=== PATIENT | male | born 1955 | race Caucasian/White ===

== ENCOUNTER 2022-10-27 10:23 | Observation (INO) ==
--- NOTE | 2022-09-21 14:26 | PAT Medication Instructions ---
Medication Instructions Date of Service September 21, 2022 Home Medications 5-Loxin 1 tab PO QAM Ca 600 mg-D3 20 mcg-mag oxide 50 gz-Wb-yohlcr-manganese-boron tablet (Calcium 600-D3 Plus (mag-zinc)) 1 tab PO QAM Reyez Fruit Extract 1 tab PO QAM Tumeric Tab 1 tab PO QAM ascorbic acid (vitamin C) 100 mg tablet (Vitamin C) 100 mg PO QAM cholecalciferol (vitamin D3) 25 mcg (1,000 unit) tablet (Vitamin D3) 25 mcg PO QAM indomethacin 50 mg capsule 50 mg PO QAM multivitamin 1 tab PO QAM ASK your surgeon for instructions indomethacin 50 mg capsule 50 mg PO QAM STOP taking 2 weeks before surgery 5-Loxin 1 tab PO QAM Ca 600 mg-D3 20 mcg-mag oxide 50 bv-Ni-qugfhf-manganese-boron tablet (Calcium 600-D3 Plus (mag-zinc)) 1 tab PO QAM Reyez Fruit Extract 1 tab PO QAM Tumeric Tab 1 tab PO QAM DO NOT take the morning of surgery ascorbic acid (vitamin C) 100 mg tablet (Vitamin C) 100 mg PO QAM cholecalciferol (vitamin D3) 25 mcg (1,000 unit) tablet (Vitamin D3) 25 mcg PO QAM multivitamin 1 tab PO QAM Other Notes NOTHING TO EAT OR DRINK AFTER MIDNIGHT. If you have any questions please call us at [phone] or [phone] or [phone] or [phone]
--- NOTE | 2022-09-27 13:35 | Anesthesiology Consultation ---
Date of Service September 27, 2022 Assessment & Plan (1) Encounter for pre-operative examination: Chart Review Chart Review: Acceptable Risk for Surgery (pending response from PCP re: elevated BP ) and Patient seen in Pre Admission Testing - Will send note to PCP re: elevated blood pressure at [facility] appt- need response - Due to BMI - patient is NOT a Same Day Joint candidate - Pt states cousin had "anesthesia issue" possibly with succinylcholine. Patient does not have specifics. Pt encouraged to reach out to cousin to find out more information and to call PAT if able to get more information. Pt states he has never personally had issues with anesthesia. No immediate family members (siblings or parents) have anesthesia issues. Discussed with Dr. Connelly- patient can proceed as scheduled. Per PAT appt on 09/27/22, patient recent returned from [facility] 09/10/22. Pt is vaccinated for Covid. Will leave to surgeon's discretion if preop Covid testing needed. Educated on importance of using Covid precautions one week prior to surgery Teaching & Discussion Pre-Anesthesia Teaching/Discussion Notes: Instructed NPO after midnight before surgery,except medications with 15 cc of water. Medication instructions provided according to the [facility] guidelines. History Surgery Operation Date: 10/26/22 07:00 Proposed Procedures p Right Total Knee Arthroplasty - Kenny Miller MD Height/Weight Height: 5 ft 10 in Weight: 163.9 kg Allergies Allergy/AdvReac Type Severity Reaction Status Date / Time No Known Allergies Allergy Verified 09/17/22 07:48 Medications Home Medications Medication Instructions Recorded Confirmed Last Taken 5-Loxin 1 tab PO QAM 09/17/22 09/17/22 Unknown Ca 600 mg-D3 20 mcg-mag oxide 50 1 tab PO QAM 09/17/22 09/17/22 Unknown rq-Hn-ollhjl-manganese-boron tablet (Calcium 600-D3 Plus (mag-zinc)) Reyez Fruit Extract 1 tab PO QAM 09/17/22 09/17/22 Unknown Tumeric Tab 1 tab PO QAM 09/17/22 09/17/22 Unknown ascorbic acid (vitamin C) 100 mg 100 mg PO QAM 09/17/22 09/17/22 Unknown tablet (Vitamin C) cholecalciferol (vitamin D3) 25 25 mcg PO QAM 09/17/22 09/17/22 Unknown mcg (1,000 unit) tablet (Vitamin D3) indomethacin 50 mg capsule 50 mg PO QAM 09/17/22 09/17/22 Unknown multivitamin 1 tab PO QAM 09/17/22 09/17/22 Unknown Past Medical History Medical History Morbid obesity Right knee DJD Exercise / Class Metabolic Activity II 4-5 Yardwork/Stairs/Walk up hill (one flight of stairs - no chest pain or SOB ) Past Family History Family History Other No family history of adverse response to anesthesia Past Surgical History Surgical History History of open reduction and internal fixation (ORIF) procedure leg leg Hx of arthroscopic knee surgery right Hx of cataract extraction B/L Past Anesthesia History No Hx of Anesthesia Complications and No Family Hx of Anesthesia Complications (cousin- possible succinylcholine issue- patient does not have specifics- no issues with anesthesia personally- pt unsure if he has ever had GA ) History of PONV No Hx of PONV and No Hx of Motion Sickness Social History Smoking Status: Never smoker Do You Dip or Chew Tobacco: No Hx Alcohol Use: Yes (SOCIALLY) alcohol intake frequency: a few times a month Hx Substance Use: No substance use type: does not use Review of Systems Chronic occ post nasal drip- occ cough Rare reflux- diet dependent Snoring - no witnessed apnea - no hx of sleep study Patient denies chest pain, shortness of breath, dyspnea on exertion, wheezing, palpitations. No hx of seizures, stroke, GA. No hx of blood clots or blood transfusions Physical Exam Vital Signs VITALS BP 160/100 (manually) P 69 TEMP 98.0 SP02 97% RESP 16 Constitutional no acute distress ENMT Mouth: no TMJ clicking Thyromental Distance: > or= 3.5 Finger Breadths (3.5) Mallampati Class: II Missing molars Permanent implant- top front tooth Right front tooth and bottom front tooth capped Neck + short neck and + thick neck; neck extension not limited Respiratory normal respiratory effort; no respiratory distress Auscultation: lungs clear to auscultation bilaterally; no wheezes Cardiovascular Rate/Rhythm: regular rate and regular rhythm Heart Sounds: no murmur Vessels: no carotid bruit Musculoskeletal Spine: no pain with cervical ROM Extremities: extremities normal to inspection Psychiatric Orientation: alert Lab Results Anesthesia Preop Results Results Anesthesia Widget: WBC 8.30 K/ul (4.8-10.8) 09/27/22 Hgb 15.5 g/dl (14.0-18.0) 09/27/22 Hct 46.5 % (40.1-51.0) 09/27/22 Plt 267 K/uL (130-400) 09/27/22 Na 140 mmol/L (136-145) 09/27/22 K 4.1 mmol/L (3.5-5.1) 09/27/22 Cl 105 mmol/L (98-107) 09/27/22 CO2 28 mmol/L (21-32) 09/27/22 BUN 15 mg/dl (6-23) 09/27/22 Creat 0.73 mg/dl (0.6-1.4) 09/27/22 Glucose Level 85 mg/dl (70-99(Fasting)) 09/27/22 PT 10.8 Seconds (9.0-12.0) 09/27/22 PTT 26.8 Seconds (21.0-31.0) 09/27/22 INR 1.0 (0.9-1.1) 09/27/22 Blood Type A Positive 09/27/22 Antibody Screen NEGATIVE 09/27/22 Testing Electrocardiogram Date: 09/27/22 SR with 1st degree AVB at 62bpm Otherwise normal EKG per cardio. Chest X-Ray Date: 09/27/22 Findings: + NAD COVID-19 Risk Screen Screening Information COVID-19 Screen Date: 09/27/22 Exposure 21 Days Family/Household +COVID Last 21 Days: No Exposure 10 Days Any COVID Exposure Last 10 Days: No Symptoms Last 10 Days Experienced COVID Sx Last 10 Days: No + COVID 0-90 Days COVID + in Last 0-90 Days: No Risk Plan COVID Risk Plan: No Risk Identified Patient Education COVID Preop Screening Education Complete: Yes
--- NOTE | 2022-10-18 16:01 | History and Physical Report ---
DATE OF ADMISSION: 10/26/2022. CHIEF COMPLAINT: Right knee pain and discomfort. HISTORY OF PRESENT ILLNESS: The patient is a 67-year-old gentleman from [place] who presents for surgical treatment of his right knee. He has got a long history of right knee pain and discomfort, describes it gotten worse over time. He has been treated conservatively by his primary care doctor and eventually by Dr. Tha Arndt from [place]. He initially told him that he needed to lose some weight and lose 30 pounds. He came back after he lost some weight and told him he had to lose 15 more. He has been frustrated by this. His pain has gotten worse over time. He describes global pain. The more he is up and on it, the more it hurts. Limps more as the day goes on. He would like to have his right knee fixed. He has been through extensive conservative treatment by his primary care doctor, which has become less successful. PAST MEDICAL HISTORY: Significant for: 1. Gout. 2. Obesity with BMI of 52. PAST SURGICAL HISTORY: Includes right knee scope many years ago. ALLERGIES: None. CURRENT MEDICATIONS: Indomethacin. SOCIAL HISTORY: A 67-year-old male. Lives in [place]. He is . Retired. Rare alcohol intake. Does not smoke. FAMILY HISTORY: No heart disease and diabetes. REVIEW OF SYSTEMS: Significant for obesity. No chest pain or shortness of breath. No history of DVT or PE. No known bleeding problems. PHYSICAL EXAMINATION: GENERAL: Shows a pleasant, large middle-aged male. HEENT: Benign. NECK: Supple. No lymphadenopathy. LUNGS: Clear to auscultation. HEART: Regular rate and rhythm. ABDOMEN: Soft, nontender, nondistended. EXTREMITIES: Grossly neurovascularly intact except as follows. Examination of the right knee reveals the patient walks with a bit of a limp. He has got varus alignment to his knee. He has got bony hypertrophy medially. Range of motion about 5 to 10 degrees short of full extension to 120 degrees of flexion. He can do a straight leg raise. No particular pain with hip motion. X-RAYS: X-rays of the right knee reviewed. It shows advanced right knee degenerative joint disease. He has got complete loss of his medial joint space. He has got osteophytes medially. He has got subchondral sclerosis. He has got cystic changes in the medial femoral condyle. Mild patellofemoral disease. ASSESSMENT: A 67-year-old very large gentleman with advanced right knee degenerative joint disease. He has failed conservative treatment. He has attempted weight loss, but limited success. He has limited his mobility. He would like to have his right knee fixed. PLAN: We talked about treatment options. We are going to proceed with right knee replacement. The risks and benefits of this procedure were explained to the patient and include but not limited to DVT, PE, , infection, neurological injury, vascular injury, bleeding problem, pain, limited range of motion, stiffness, failure to relieve symptoms, etc. The patient understands and desires to proceed. Informed consent was obtained. I did tell him that based on his size and weight that he is at increased risk for infection and loosening and he is aware of that and would like to proceed. Does not feel like he can progress activities with his knee pain as it is. We will be planning on DVT prophylaxis includes thigh-high TEDs, SCDs, and aspirin. Holding the medicine 10 days preop. We will likely put a stem in his tibia in order to decrease the likelihood of loosening. Job ID: [id number] [facility]
[~2022-10-27 10:23] MED LIST: ACETAMINOPHEN 500 MG TAB PO SCH; BUPIVACAINE 0.5 % 5 MG/1 ML PF 10ML VIAL ONE; BUPIVACAINE LIPOSOME/PF 266 MG, BUPIVACAINE/EPINEPHRINE 50 ML, SODIUM CHLORIDE 0.9% 30 ... INFIL SCH; CeleBREX 200 MG CAP PO SCH; FAMOTIDINE 20 MG TAB PO SCH; LR 500ML BOLUS, THEN 15ML/HR IV SCH; LR 60ML/HR IV SCH; METOCLOPRAMIDE HCL 10 MG TABLET PO SCH; ROPIVACAINE 0.5% 5 MG/ML 30 ML VIAL ONE; Scopolamine 1 MG TDSY TD SCH; Scopolamine CHECK PATCH PLACEMENT SCH; TRANEXAMIC ACID 1,000 MG **IV Intra-op IV SCH
[2022-10-27] MEDS: LR 500ML BOLUS, THEN 15ML/HR IV SCH (11:04)
[2022-10-27] MEDS: ACETAMINOPHEN 500 MG TAB PO SCH ×2 (11:05→22:26)
[2022-10-27] MEDS: CeleBREX 200 MG CAP PO SCH (11:05)
[2022-10-27] MEDS: FAMOTIDINE 20 MG TAB PO SCH (11:05)
[2022-10-27] MEDS: METOCLOPRAMIDE HCL 10 MG TABLET PO SCH (11:06)
[2022-10-27] MEDS: Scopolamine 1 MG TDSY TD SCH (11:06)
[2022-10-27] MEDS ORDERED: ePHEDrine sulfate 50 MG/ML AMP IV PRN (11:11)
[2022-10-27] MEDS ORDERED: fentaNYL citrate 100 MCG/2 ML VIAL IV PRN (11:11)
[2022-10-27] MEDS ORDERED: ATROPINE SULFATE 0.1 MG/ML 10ML SYR IV PRN (11:11)
[2022-10-27] MEDS ORDERED: ONDANSETRON INJ 2 MG/ML 2 ML VIAL IV PRN ×2 (11:11→18:05)
[2022-10-27] MEDS ORDERED: BUPIVACAINE/EPINEPHRINE 0.25% 1:200,000 30 ML VIAL ONE (12:12)
[2022-10-27] MEDS ORDERED: SODIUM CHLORIDE 0.9% INJ 10 ML VIAL ONE (12:12)
[2022-10-27] MEDS ORDERED: BUPIVACAINE LIPOSOME 1.3% 266 MG/20 ML VIAL ONE (12:13)
[2022-10-27] MEDS ORDERED: PROPOFOL IV EMULSION 10 MG/ML 20 ML VIAL IV ONE (12:30)
[2022-10-27] MEDS ORDERED: LIDOCAINE 2% MPF LOCAL 5 ML VIAL INFIL ONE (12:30)
[2022-10-27] MEDS ORDERED: MIDAZOLAM HCL 1 MG/ML 2ML VIAL ONE ×2 (12:31→14:21)
[2022-10-27] MEDS ORDERED: fentaNYL citrate 100 MCG/2 ML VIAL ONE (12:31)
--- NOTE | 2022-10-27 14:21 | History & Physical Bridge Note ---
Date of Service October 27, 2022 History & Physical Bridge Note I have examined the patient, reviewed the History & Physical and in the interval since the performance of the History & Physical I have noted the following changes of clinical significance: no changes noted
[2022-10-27] MEDS ORDERED: PHENYLEPHRINE 100MCG/ML 5ML SYR ONE (14:49)
[2022-10-27] MEDS ORDERED: ePHEDrine sulfate 50 MG/ML SYR ONE (14:49)
[2022-10-27] MEDS ORDERED: ePHEDrine sulfate 50 MG/ML AMP ONE (15:17)
[2022-10-27] MEDS: BUPIVACAINE LIPOSOME/PF 266 MG, BUPIVACAINE/EPINEPHRINE 50 ML, SODIUM CHLORIDE 0.9% 30 ... INFIL SCH (15:21)
[2022-10-27] MEDS: TRANEXAMIC ACID 1,000 MG **IV Intra-op IV SCH (15:53)
--- NOTE | 2022-10-27 16:47 | Operative Report ---
PG Post Operative Report Pre & Post Diagnosis Operation Date: 10/27/22 12:30 Pre-Op Diagnosis: Right Knee DJD Post-Op Diagnosis: Right Knee DJD I identified the patient and participated in the time-out.: Yes Procedure Operation Date: 10/27/22 12:30 Actual Procedures p Right Total Knee Arthroplasty(Right) - Kenny Miller MD Surgeon Kenny Miller MD Change Management Lead Wang Thayer PA-C Estimated Blood Loss 50 Findings Consistent with Post-Op Diagnosis Operative findings were advanced right knee DJD. Grade 4 [id number]-pq-utje disease in all 3 compartments most severe in the medial side. He had extensive synovi tis throughout his knee joint. Specimens Right knee sent for pathology Drains none Anesthesia Type Spinal MAC Complications none Disposition Accompanied Patient To Recovery: No Indications Patient is a 67-year-old very large gentleman who is a long history of a right knee pain discomfort with describes gotten worse over time. Is been through extensive conservative treatments became less successful. He spent quite a bit of time trying to lose weight and optimize his situation but he continued be markedly limited by his knee pain. He elected proceed with surgical treatment. Description of Procedure Operative implants consist of: 1 Biomet Vanguard size 80 right posterior stabilized femoral component. 2. Biomet size 83 tibial tray with a 19 x 80 mm stem with a 2.5 mm offset and small cruciate wing. 3. 12 mm posterior stabilized polyethylene insert. 4. 34 x 8 and half all Paller patella. The patient was taken the operating room, identified, placed on the operating table supine position protectors were properly padded. IV antibiotics by anesthesia team. Spinal anesthetic and abductor canal block had been provided in the holding area. Nichols catheter was placed in sterile fashion. A right thigh tent was then placed. Right lower extremities and prepped and draped in usual sterile fashion. The right leg was elevated exsanguinated with use of an Esmarch in terms playset 300 mmHg. An anterior approach to the right knee was then performed to longitudinal incision centered over the patella. Sharp dissection was got through subcutaneous tissue down the extensor mechanism. A medial parapatellar arthrotomy incision was made. Some subperiosteal dissection was carried out medially. The fat pad was dissected from Neath patella tendon. The lateral patellofemoral ligament was released. Patella subluxated laterally knee was flexed. The osteophytes taken off distal femur. The ACL and PCL then released from distal femur the tibia subluxated anteriorly. I then excised the tibial eminence. I elected to place a stem tibia due to his very large size. The entry reamer was used into the tibia. I reamed up to a size 19. The reamer was left in place. The intramedullary cutting guide was placed and adjusted to take a millimeter off the most deficient aspect the posterior medial tibial plateau. The tibial cut was made. Tibia sized to a size 83. 2 and half millimeter OsteoSet was selected. The proximal tibia was prepared for a 19 mm stem with a 2.5 mm offset and a small cruciate wing. This implant was assembled and placed and fit nicely. Attention drawn the femur. Distal femur stem with a sharp drill bit intramedullary canal was suction. A right 6 degree valgus cutting guide was placed. This femoral cutting block was pinned in place. Distal femoral cut was made to take an additional 3 mm bone off distal femur. The femur was then sized to a size 80. Sized exactly 2 and 80. The AP cutting block was pinned parallel to the epicondylar axis which was 3 degrees of external rotation. The anterior cut, anterior chamfer, posterior cut, posterior chamfer cuts were made. The box cutting guide was placed in just slight lateral box cut was made. The knee was flexed. The remnants of the medial and lateral menisci were excised. The osteophytes were taken off the posterior aspect the femur. A trial femoral component was placed. The knee was then trialed a 12 mm insert fit most appropriately. Attention drawn the patella. The patella was cleaned of all soft tissues. Patella thickness measured 23 mm in thickness was cut down to 15. Was sized to a size 34 patella. The lug holes were drilled for the 34 patella. Lateral osteophytes removed. Patella button was placed. Knee was taken through range of motion and the patella tracked nicely with no thumbs test. Attention drawn to place the permanent components. Nupathe all trial components were removed. Bone plug was placed in the distal femur limit blood loss. Double batch Palacos G cement was mixed. A Biomet Vanguard size 80 right posterior stabilized femoral component, size 83 tibial tray with a small cruciate wing, 80 x 19 mm offset stem, a 12 mm Po stabilized polyethylene insert, and a 34 x 8 and half all Paller patella then cemented in place. Knee was brought out into full extension until cement hardened. Final cement check was then performed. The pericapsular tissues were injected with total 100 cc of combination of 20 cc of Exparel, 30 cc normal saline, 50 cc of quarter percent Marcaine with epinephrine. The patient did receive 1 g tranexamic acid. The tourniquet let down for final turn time 78 minutes but hemostasis assured use electrocautery. Extensor mechanism closed with combination 1 PDS suture #1 Vicryl suture in [id number] fashion. Extensor mechanism checked found to be intact the subcutaneous tissue then closed with 2 Dexon suture in a buried interrupted fashion skin was closed skin sybil. Leg was then cleaned and dried a sterile dressing was Xeroform, 4 x 4's, sterile cast padding, Cesar bandage applied. Patient then transferred to the recovery room in stable condition. Patient tolerated procedure well and there are no complications. Wang Thayer, my physician payroll and benefits assistant, was present for the entire procedure. His assistance was essential and required for appropriate patient positioning, prepping and draping, surgical exposure, performing the technical details of the operation, placement the implants, closure of the wound, and placement of the sterile bandage. I attest to the content of the Intraoperative Record and any orders documented therein. Any exceptions are noted below.
--- NOTE | 2022-10-27 17:23 | Anesthesiology Progress Note ---
Date of Service October 27, 2022 Anesthesia Post Procedure Vital Signs Vital Signs: Temp Pulse Pulse Resp BP BP Pulse Ox 10/27/22 17:15 36.6 C 56 L 14 136/77 94 10/27/22 17:05 71 14 114/71 95 10/27/22 16:55 62 16 138/70 95 10/27/22 16:47 36.3 C L 75 15 131/73 95 10/27/22 11:21 135/67 10/27/22 10:52 36.9 C 95 H 20 183/106 H 98 O2 Del Method 10/27/22 17:15 Room Air 10/27/22 17:05 Room Air 10/27/22 16:55 Room Air 10/27/22 16:47 Room Air 10/27/22 11:21 10/27/22 10:52 Room Air Pain Intensity Right Knee: Pain Intensity: 2 Transfer of Care Handoff Completed per policy Notes Mental Status: alert / awake / arousable Patient Amnestic to Procedure: Yes Nausea / Vomiting: adequately controlled Pain: adequately controlled Airway Patency, RR, SpO2: stable & adequate BP & HR: stable & adequate Hydration State: stable & adequate Neuraxial Anesthesia: was administered and sensory block is resolving Anesthetic Complications: no major complications apparent and Pt Satisfied with anesthetic care
--- NOTE | 2022-10-27 17:25 | XRay Report ---
TWO VIEWS RIGHT KNEE CLINICAL HISTORY: Postoperative examination. FINDINGS: AP and crosstable lateral portable views of the right knee are obtained. A right knee arthr oplasty is in near anatomic alignment. There has been undersurface remodeling of the patella. No acut e fracture is seen. There are expected postoperative changes around the knee including skin clips, so ft tissue edema, and subcutaneous gas. IMPRESSION: Expected postoperative changes status post right knee arthroplasty. No acute fracture is seen. ACT 112: Negative or not required by law. Electronically signed by: Hi Pastrana M.D. 10/27/2022 5:23 PM
[2022-10-27] MEDS: Scopolamine CHECK PATCH PLACEMENT SCH ×2 (17:28→23:27)
[2022-10-27] MEDS ORDERED: HYDROmorphone INJ 1 MG/ML SYRINGE IV PRN (18:05)
[2022-10-27] MEDS ORDERED: METOCLOPRAMIDE HCL INJ 5 MG/ML 2 ML VIAL IV PRN (18:05)
[2022-10-27] MEDS ORDERED: NALOXONE HCL 0.4 MG/1 ML VIAL/CARP IV PRN (18:05)
[2022-10-27] MEDS ORDERED: MAGNESIUM HYDROXIDE SUSP 30 ML UDC PO PRN (18:05)
[2022-10-27] MEDS ORDERED: ALUMINUM/MAGNESIUM SUSP 30 ML UDC PO PRN (18:05)
[2022-10-27] MEDS ORDERED: bisacodyL 10 MG SUPP PR PRN (18:05)
[2022-10-27] MEDS: SODIUM CHLORIDE 0.9% 1000ML 1,000 ML IV SCH (18:18)
[2022-10-27] MEDS ORDERED: TAMSULOSIN HCL 0.4 MG CAP PO PRN (18:28)
[2022-10-27] MEDS: KETOROLAC TROMETHAMINE 15 MG/ML VIAL IV SCH ×2 (19:43→23:30)
[2022-10-27] MEDS: ASCORBIC ACID 500 MG TAB PO SCH (19:43)
[2022-10-27] MEDS: DOCUSATE SODIUM 100 MG CAP PO SCH (20:20)
[2022-10-27] MEDS: ASPIRIN 81 MG ECTAB PO SCH (20:21)
[2022-10-27] MEDS: TAPENTADOL HCL ER 50 MG TABCR PO SCH (20:23)
[2022-10-27] MEDS ORDERED: SENNA 8.6 MG TAB PO SCH (21:00)
[2022-10-27] MEDS: ceFAZolin 2000MG 2,000 MG/15 ML SYR IV SCH (22:26)
[2022-10-27] MEDS ORDERED: TRANEXAMIC ACID / 0.7% NACL 1,000 MG/100 ML BAG IV SCH (22:45)
[2022-10-27] MEDS: oxyCODONE HCL IR 5 MG TAB (IMMEDIATE RELEASE) PO PRN (23:28)
[2022-10-28] MEDS: SODIUM CHLORIDE 0.9% 1000ML 1,000 ML IV SCH (03:41)
[2022-10-28] MEDS: Scopolamine 1 MG TDSY TD SCH (05:03)
[2022-10-28] MEDS: ACETAMINOPHEN 500 MG TAB PO SCH ×3 (05:03→15:29)
[2022-10-28] MEDS: METOCLOPRAMIDE HCL 10 MG TABLET PO SCH (05:03)
[2022-10-28] MEDS: BUPIVACAINE LIPOSOME/PF 266 MG, BUPIVACAINE/EPINEPHRINE 50 ML, SODIUM CHLORIDE 0.9% 30 ... INFIL SCH (05:03)
[2022-10-28] MEDS: CeleBREX 200 MG CAP PO SCH (05:03)
[2022-10-28] MEDS: LR 500ML BOLUS, THEN 15ML/HR IV SCH (05:03)
[2022-10-28] MEDS: FAMOTIDINE 20 MG TAB PO SCH (05:03)
[2022-10-28] MEDS: TRANEXAMIC ACID 1,000 MG **IV Intra-op IV SCH (05:04)
[2022-10-28] MEDS: KETOROLAC TROMETHAMINE 15 MG/ML VIAL IV SCH ×2 (05:42→12:00)
[2022-10-28] MEDS: ceFAZolin 2000MG 2,000 MG/15 ML SYR IV SCH (05:46)
[2022-10-28 07:50] LABS: Hematocrit (blood only) 37.7 % (40.1-51.0); Hemoglobin 12.6 g/dl (14.0-18.0); Mean Corpuscular Hemoglobin 30.4 pg (25.0-34.0); Mean Corpuscular Hgb Conc 33.4 g/dL (32.0-36.0); Mean Corpuscular Volume 91.1 fL (80.0-100.0); Mean Platelet Volume 9.9 fL (9.4-12.4); Platelet Count 221 K/uL (130-400); RDW Coefficient of Variation 12.8 % (11.5-14.5); RDW Standard Deviation 42.5 fL (36.4-46.3); Red Blood Count 4.14 M/uL (4.63-6.08); White Blood Count 11.63 K/ul (4.8-10.8)
[2022-10-28] MEDS ORDERED: dexAMETHasone 10 MG in SYRINGE 0 ML IV SCH (08:00)
--- NOTE | 2022-10-28 08:04 | Progress Notes ---
DATE OF SERVICE: 10/28/2022 SUBJECTIVE: A 67-year-old gentleman postoperative day 1 from right knee replacement. He is doing ok ay. Had a rough night as far as sleeping. No chest pain or shortness of breath. Not feeling dizzy or lightheaded. OBJECTIVE: VITAL SIGNS: Temperature 36.9. Vital signs are stable. GENERAL: Shows a pleasant middle-aged male. He is sitting up in bed, looks reasonably comfortable. EXTREMITIES: Examination of the right leg reveals the leg to be well aligned. Dressing is clean, dr y, and intact. He can dorsiflexors and plantarflex his foot appropriately. He is neurologically int act. LABORATORY DATA: Labs are pending. ASSESSMENT: A 67-year-old gentleman postoperative day 1 from right knee replacement, doing pretty we ll. The pain has been reasonably well controlled. He is neurologically intact. PLAN: 1. DVT prophylaxis includes thigh-high TEDs, SCDs, and aspirin twice a day. 2. PT/OT, weightbear as tolerated. Right total knee protocol. 3. Pain control. Doing okay with current pain regimen. 4. Disposition: He is planning to be discharged to home with some home health. We will see how the rapy goes today. He is going to probably need another day or so in the hospital based on his large s angelae. Job ID: [id number]
[2022-10-28 08:13] LABS: BUN Creatinine Ratio 24.2 (10-20); Calcium 7.9 mg/dl (8.5-10.1); Creatinine Clr Calc Pharmacy 163.2 ml/min; Est GFR (African American) 115.1 ml/min; Est GFR (Non-African American) 99.3 ml/min; Potassium 4.2 mmol/L (3.5-5.1)
[2022-10-28] MEDS: oxyCODONE HCL IR 5 MG TAB (IMMEDIATE RELEASE) PO PRN (08:28)
[2022-10-28] MEDS: ASCORBIC ACID 500 MG TAB PO SCH (08:29)
[2022-10-28] MEDS: ASPIRIN 81 MG ECTAB PO SCH (08:29)
[2022-10-28] MEDS: DOCUSATE SODIUM 100 MG CAP PO SCH (08:29)
[2022-10-28] MEDS: Scopolamine CHECK PATCH PLACEMENT SCH (08:29)
[2022-10-28] MEDS: TAPENTADOL HCL ER 50 MG TABCR PO SCH (08:35)
[2022-10-28] MEDS ORDERED: CHERRY FRUIT EXTRACT PO SCH (09:00)
[2022-10-28] MEDS ORDERED: [UNRECOGNIZED DRUG - OTHER] PO SCH (09:00)
[2022-10-28] MEDS ORDERED: NON-FORMULARY MEDICATION (Multivitamin Tablet) PO SCH (09:00)
[2022-10-28] MEDS ORDERED: LOSARTAN POTASSIUM 25 MG TAB PO SCH (09:00)
[2022-10-28] MEDS ORDERED: CHOLECALCIFEROL 1,000 UNITS 25 MCG TAB PO SCH (09:00)
[2022-10-28] MEDS ORDERED: TUMERIC PO SCH (09:00)
[2022-10-28] MEDS ORDERED: NON-FORMULARY MEDICATION (Ascorbic Acid (Vitamin C) [Vitamin C] 100 mg Tablet) PO SCH (09:00)
[2022-10-28] MEDS ORDERED: MULTIVITAMIN TAB PO SCH (09:00)
[2022-10-28] MEDS ORDERED: CEROVITE ADV FORMULA TAB PO SCH (09:00)
--- NOTE | 2022-10-31 07:53 | Discharge Summary ---
Date of Service October 31, 2022 Discharge Data Procedures Performed Operation Date: 10/27/22 12:30 Actual Procedures p Right Total Knee Arthroplasty(Right) - Kenny Miller MD Hospital Course (1) Status post total right knee replacement: This is a 67 year old patient admitted on 10/27/22 and underwent total knee arthroplasty. He tolerated the procedure well and there were no complications. Transferred to the PACU post op and later to the orthopedic floor for further care. He was given ancef for antibiotic prophylaxis. He was also given ARIANA stockings, SCDs, and aspirin for DVT prophylaxis. Hemoglobin, hematocrit, and vital signs were monitored during his hospital stay and remained stable. Did not require any blood transfusions. There were no complications during his hospital stay. By post op day #1 the patient was tolerating a regular diet, pain was reasonably controlled with oral pain medicine, and he was participating in physical therapy. On post op day #1 the patient was discharged home and set up with home health care. He was given printed discharge instructions including prescriptions for extra strength tylenol, aspirin, ketorolac, cefadroxil, zofran, senokot, flomax, and oxycodone. Continue physical therapy, weight bearing as tolerated. Continue ARIANA stockings. Follow up approximately 2 weeks post op or sooner if there are problems or concerns. Coding Level of Care Code None Diagnoses Status post total right knee replacement Z96.651
== END 2022-10-28 17:45 | disposition home health service (06) ==
LOC: 3E 10:23 → ASU 10:23

== ENCOUNTER 2024-12-18 06:20 | Observation (INO) ==
--- NOTE | 2024-11-21 12:25 | PAT Medication Instructions ---
Medication Instructions Date of Service November 21, 2024 Home Medications 5-Loxin 1 tab PO QAM Reyez Fruit Extract 1 tab PO QAM ascorbic acid (vitamin C) 100 mg tablet (Vitamin C) 100 mg PO QAM calcium 600 mg-D3 20 mcg-magnesium 50 bm-Oa-yacqch-monik-boron tablet (Calcium 600-D3 Plus (mag-zinc)) 1 tab PO QAM cholecalciferol (vitamin D3) 25 mcg (1,000 unit) tablet (Vitamin D3) 25 mcg PO QAM colchicine See Rx Instructions .Route .COMPLEX amoxicillin 500 mg tablet 2,000 mg PO ONCE PRN dental procedure cyanocobalamin (vitamin B-12) 100 mcg tablet (Vitamin B-12) 100 mcg PO QAM losartan 50 mg tablet 50 mg PO QAM turmeric root extract 500 mg capsule 500 mg PO QAM Continue as directed amoxicillin 500 mg tablet 2,000 mg PO ONCE PRN dental procedure STOP taking 2 weeks before surgery (or as soon as possible if surgery is within 2 weeks) 5-Loxin 1 tab PO QAM Reyez Fruit Extract 1 tab PO QAM turmeric root extract 500 mg capsule 500 mg PO QAM STOP taking 48 hours before surgery colchicine See Rx Instructions .Route .COMPLEX DO NOT take the morning of surgery ascorbic acid (vitamin C) 100 mg tablet (Vitamin C) 100 mg PO QAM calcium 600 mg-D3 20 mcg-magnesium 50 tc-Ki-koyxts-monik-boron tablet (Calcium 600-D3 Plus (mag-zinc)) 1 tab PO QAM cholecalciferol (vitamin D3) 25 mcg (1,000 unit) tablet (Vitamin D3) 25 mcg PO QAM cyanocobalamin (vitamin B-12) 100 mcg tablet (Vitamin B-12) 100 mcg PO QAM losartan 50 mg tablet 50 mg PO QAM MORNING OF SURGERY: NOTHING TO EAT OR DRINK AFTER MIDNIGHT Other Notes If you have any questions please call us at [phone] or [phone] or [phone] or [phone]
--- NOTE | 2024-11-29 08:13 | Anesthesiology Consultation ---
Date of Service November 29, 2024 Assessment & Plan (1) Encounter for pre-operative examination: Plan - Case discussed in detail with Dr. Garcia who advised nothing additional/no precautions are needed for patient's surgery especially regarding family history of cousin with unspecified succinylcholine reaction. Patient was advised he should confirm family members he is in contact with are aware of family anesthesia history. He verbalized understanding, denied questions or concerns. - Outpatient joint assessment: Patient is currently scheduled for inpatient pathway. If re-evaluated and patient/surgeon requests outpatient pathway, patient is acceptable candidate for outpatient joint program from anesthesia standpoint pending surgeon's office assessment of pt motivation/support/completion of same day joint program preop requirements. Chart Review Chart Review: Acceptable Risk for Surgery and Patient seen in Pre Admission Testing Teaching & Discussion Pre-Anesthesia Teaching/Discussion Notes: Instructed NPO after midnight before surgery, except medications with 15 cc of water. Medication instructions provided according to the PAT guidelines. History Surgery Operation Date: 12/18/24 12:30 Proposed Procedures p Left Total Knee Arthroplasty - Kenny Miller MD Height/Weight Height: 5 ft 10 in Weight: 168.5 kg Allergies Allergy/AdvReac Type Severity Reaction Status Date / Time No Known Allergies Allergy Verified 11/20/24 15:09 Medications Home Medications Medication Instructions Recorded Confirmed Last Taken 5-Loxin 1 tab PO QAM 09/17/22 11/20/24 09/27/22 Reyez Fruit Extract 1 tab PO QAM 09/17/22 11/20/24 10/20/22 ascorbic acid (vitamin C) 100 mg 100 mg PO QAM 09/17/22 11/20/24 10/24/22 tablet (Vitamin C) calcium 600 mg-D3 20 mcg-magnesium 1 tab PO QAM 09/17/22 11/20/24 10/20/22 50 hg-Do-rsuqry-monik-boron tablet (Calcium 600-D3 Plus (mag-zinc)) cholecalciferol (vitamin D3) 25 25 mcg PO QAM 09/17/22 11/20/24 10/20/22 mcg (1,000 unit) tablet (Vitamin D3) colchicine See Rx Instructions .Route .COMPLEX 10/05/22 11/20/24 10/13/22 amoxicillin 500 mg tablet 2,000 mg PO ONCE PRN dental 11/20/24 11/20/24 Unknown procedure cyanocobalamin (vitamin B-12) 100 100 mcg PO QAM 11/20/24 11/20/24 Unknown mcg tablet (Vitamin B-12) losartan 50 mg tablet 50 mg PO QAM 11/20/24 11/20/24 Unknown turmeric root extract 500 mg 500 mg PO QAM 11/20/24 11/20/24 Unknown capsule Past Medical History Medical History Hx of gout Hypertension controlled, stable per pt Morbid obesity Patient denies h/o stroke, seizures, heart attack, heart failure, DM, blood clots/DVTs or blood transfusions. Exercise / Class Metabolic Activity II 4-5 Yardwork/Stairs/Walk up hill (denies chest discomfort or shortness of breath with one flight of stairs) Past Family History Family History Other No family history of adverse response to anesthesia Past Surgical History Surgical History H/O oral surgery x1 dental implant History of colonoscopy History of open reduction and internal fixation (ORIF) procedure left tib/fib with hardware in place History of right knee joint replacement Hx of arthroscopic knee surgery right Hx of cataract extraction B/L Past Anesthesia History No Hx of Anesthesia Complications and Other (cousin with succinylcholine severe reaction-unknown additional details-denies knowing if it was malignant hyperthermia/pseudocholinesterase deficiency-states is not in contact with cousin) History of PONV No Hx of PONV and No Hx of Motion Sickness Social History Smoking Status: Never smoker Do You Dip or Chew Tobacco: No Hx Alcohol Use: Yes (SOCIALLY) alcohol intake frequency: a few times a month Hx Substance Use: No substance use type: does not use Review of Systems Snoring, denies witnessed apneas. Patient denies chest pain, shortness of breath, dyspnea on exertion, reflux, fever, chills, cough, wheezing, or palpitations. Physical Exam Vital Signs Vitals BP 130/90 P 73 TEMP 98.1 SP02 94% on RA RESP 18 Physical Patient resting comfortably in chair in no acute distress, alert and oriented, responding appropriately throughout visit Full cervical extension range of motion without pain TMD 3 finger breadths Mallampati Score 3 Dentition: one implant and several caps, denies chipped or loose teeth, or bridges Lungs: normal respiratory effort. Good air movement, clear throughout to auscultation, no adventitious breath sounds Cardiac: regular rate and rhythm, no murmurs noted Carotid arteries: negative bruit bilat Lab Results Anesthesia Preop Results Results Anesthesia Widget: WBC 9.98 K/ul (4.8-10.8) 11/29/24 Hgb 15.6 g/dl (14.0-18.0) 11/29/24 Hct 46.1 % (42.0-52.0) 11/29/24 Plt 290 K/uL (130-400) 11/29/24 Na 139 mmol/L (136-145) 11/29/24 K 4.4 mmol/L (3.5-5.1) 11/29/24 Cl 104 mmol/L (98-107) 11/29/24 CO2 29 mmol/L (21-32) 11/29/24 BUN 14 mg/dl (6-23) 11/29/24 Creat 0.84 mg/dl (0.6-1.4) 11/29/24 Glucose Level 103 mg/dl (70-99(Fasting)) H 11/29/24 PT 10.3 Seconds (9.0-12.0) 11/29/24 PTT 26 Seconds (21-31) 11/29/24 INR 0.9 (0.9-1.1) 11/29/24 Blood Type A Positive 11/29/24 Antibody Screen NEGATIVE 11/29/24 Testing Electrocardiogram Date: 11/29/24 NSR, rate 66 bpm Low voltage QRS Poor R wave progression, consider anterior [place] vs lead placement vs LVH No significant change vs 09/27/22 EKG Chest X-Ray Date: 11/29/24 Stable exam; no acute process identified.
[~2024-12-18 06:20] MED LIST changes: -ACETAMINOPHEN 500 MG TAB PO SCH; -BUPIVACAINE 0.5 % 5 MG/1 ML PF 10ML VIAL ONE; -BUPIVACAINE LIPOSOME/PF 266 MG, BUPIVACAINE/EPINEPHRINE 50 ML, SODIUM CHLORIDE 0.9% 30 ... INFIL SCH; -CeleBREX 200 MG CAP PO SCH; -FAMOTIDINE 20 MG TAB PO SCH; -LR 500ML BOLUS, THEN 15ML/HR IV SCH; -LR 60ML/HR IV SCH; -METOCLOPRAMIDE HCL 10 MG TABLET PO SCH; -ROPIVACAINE 0.5% 5 MG/ML 30 ML VIAL ONE; -Scopolamine 1 MG TDSY TD SCH; -Scopolamine CHECK PATCH PLACEMENT SCH; -TRANEXAMIC ACID 1,000 MG **IV Intra-op IV SCH; +TRANEXAMIC ACID 1,000 MG **IV Pre-op IV SCH
[2024-12-18] MEDS ORDERED: ROPIVACAINE 0.5% 5 MG/ML 30 ML VIAL ONE (06:28)
--- NOTE | 2024-12-18 06:44 | History & Physical Bridge Note ---
Date of Service December 18, 2024 History & Physical Bridge Note I have examined the patient, reviewed the History & Physical and in the interval since the performance of the History & Physical I have noted the following changes of clinical significance: no changes noted
[2024-12-18] MEDS: LR 500ML BOLUS, THEN 15ML/HR IV SCH (07:15)
[2024-12-18] MEDS: LR 60ML/HR IV SCH (07:16)
[2024-12-18] MEDS: METOCLOPRAMIDE HCL 10 MG TABLET PO SCH (07:17)
[2024-12-18] MEDS: ACETAMINOPHEN 500 MG TAB PO SCH ×2 (07:17→14:31)
[2024-12-18] MEDS: FAMOTIDINE 20 MG TAB PO SCH (07:17)
[2024-12-18] MEDS: CeleBREX 200 MG CAP PO SCH (07:18)
[2024-12-18] MEDS: dexAMETHasone**PF** 10 MG/ML VIAL IV SCH (07:18)
[2024-12-18] MEDS ORDERED: MIDAZOLAM HCL 1 MG/ML 2ML VIAL ONE ×2 (07:27→09:40)
[2024-12-18] MEDS ORDERED: fentaNYL citrate PF 100 MCG/2 ML VIAL ONE (07:27)
[2024-12-18] MEDS ORDERED: PROPOFOL IV EMULSION 10 MG/ML 20 ML VIAL IV ONE ×4 (07:38→10:18)
[2024-12-18] MEDS ORDERED: ONDANSETRON INJ 2 MG/ML 2 ML VIAL ONE (07:38)
[2024-12-18] MEDS ORDERED: LIDOCAINE 2% 2 ML VIAL/AMP(20MG/ML) INFIL ONE ×2 (07:38→10:23)
[2024-12-18] MEDS ORDERED: KETAMINE HCL 10MG/ML SYR ONE (08:03)
[2024-12-18] MEDS ORDERED: DexMEDEtomidine HCL IV 100 MCG/ML VIAL IV ONE (08:04)
[2024-12-18] MEDS ORDERED: GLYCOPYRROLATE 0.2 MG/ML VIAL ONE (08:04)
[2024-12-18] MEDS: ceFAZolin 3000MG 3,000 MG/72.5 ML BAG IV SCH (09:01)
[2024-12-18] MEDS ORDERED: PHENYLEPHRINE 100MCG/ML 5ML SYR ONE ×2 (09:09→09:58)
[2024-12-18] MEDS ORDERED: ePHEDrine sulfate 50 MG/5 ML SYR ONE (09:09)
[2024-12-18] MEDS: ROPIV 0.5% 246mg, Ketorolac 30mg, EPINEPHrine 0.5mg in NSS INFIL SCH (09:39)
[2024-12-18] MEDS: TRANEXAMIC ACID 1,000 MG **IV Intra-op IV SCH (10:01)
[2024-12-18] MEDS: ORTHO JOINT ANESTHETIC ONE (10:01)
--- NOTE | 2024-12-18 11:04 | Operative Report ---
PG Post Operative Report Pre & Post Diagnosis Operation Date: 12/18/24 08:50 Pre-Op Diagnosis: Left Knee Osteoarthritis Post-Op Diagnosis: Left Knee Osteoarthritis I identified the patient and participated in the time-out.: Yes Procedure Operation Date: 12/18/24 08:50 Actual Procedures p Left Total Knee Arthroplasty(Left) - Kenny Miller MD Surgeon Kenny Miller MD User Interface Artist Wang Thayer PA-C Estimated Blood Loss 50 Findings Consistent with Post-Op Diagnosis Operative findings were advanced left knee medial compartment DJD. He had areas of full-thickness cartilage loss down to the bone. Moderate-sized knee joint effusion. Specimens Left knee sent for pathology. Anesthesia Type Spinal MAC Complications none Disposition Accompanied Patient To Recovery: No Indications Patient is a 69-year-old morbidly obese gentleman with a BMI of 53 who 69 gradual long-term history of bilateral knee pain and arthritis. He had his right knee replaced about 2 and half years ago and did well from this. Rosemarie nued be limited by left knee pain. He failed conservative measures. X-rays show advanced medial compartment arthritis. He elected to see a total knee arthroplasty. We elected to use a tibial stem due to this patient's large size and body habitus. Description of Procedure Operative implants consist of: 1 Biomet Vanguard size 80 left posterior Byce femoral component. 2. Biomet size 83 tibial tray with a 18 x 80 stem with a 5.0 mm offset and a small cruciate wing. 3. 12 mm posterior Byce polyethylene insert. 4. 34 x 8 and half all poly patella. The patient was taken the op room, identified, placed on the operating table in the supine position. All conductors were appropriately padded. IV antibiotics fibra anesthesia team. A spinal anesthetic and adductor canal block had been provided in the holding area. A left thigh tent was then placed. Left lower extremity was then prepped and draped in usual sterile fashion. The left leg was elevated and exsanguinated with use of an Esmarch and a turn was placed at 300 mmHg. An anterior approach left knee was then performed to longitudinal incision centered over the patella. Sharp dissection carried through subcutaneous tissue down the extensor mechanism. A medial parapatellar arthrotomy incision was made. Some subperiosteal dissection was carried out medially. The fat pad was resected munis patella tendon. Lateral patellofemoral ligament was released. Patella subluxated laterally and the knee was flexed. The osteophytes taken off distal femur. The ACL PCL were then re leased from distal femur the tibia subluxated anteriorly. I then resected the tibial eminence. I then reamed the tibial canal up to a size 18. We get pretty good chatter there. We stopped and used the IM reamer to cut off. The cutting guide was placed on the IM reamer and just taking 2 mm of bone off the medial side. The tibia sized to a size 83. There was prepared for today 5.0 mm offset stem. The trial was assembled and the implanted fit nicely. Attention drawn the femur. The distal femur examined the sharp drop with intramedullary canal was suction. A left 6. Valgus cutting guide was placed. This femoral cutting block was pinned in place. This femoral cut was made to take an additional 3 mm of bone off distal femur. Femur was then sized to a size 80. The AP cutting block was pinned parallel to the epicondylar axis which was 4 degrees of external rotation. The anterior cut, anterior chamfer, posterior cut, posterior chamfer cuts were made. The box cutting guide was placed and adjusted slightly laterally. The box cut was made. The knee was flexed. The remnants of the medial and lateral menisci were excised. The osteophytes taken off the posterior aspect of the femur. A trial femoral component was placed. We then trialed the knee and the 12 mm insert fit most appropriately. Attention drawn the patella. The patella was cleaned of all soft tissue. Patella thickness measured 24 mm thickness cut down to 14. Was sized to a size 34 patella. The lug holes were drilled for 34 patella. Lateral osteophytes removed. Patella button was placed. Knee was taken through range of motion patella tracked nicely with no thumbs test. Attention turned to placement permanent components. Nupathe all trial bones removed. A bone plug was placed into this femur limit blood loss. Double batch [place] G cement was mixed. A Biomet Vanguard size 80 left posterior stabilized femoral component, a size 83 tibial tray with a 80 x 18 mm stem, 5 mm offset and small cruciate wing, 12 mm posterior Byce polyethylene insert, and a 34 x 8 and half all poly patella then cemented in place. Knee was brought out in full extension till cement hardened. Final symmetric exam performed. The pericapsular tissues were injected with total 100 cc of Ortho mix. Patient did receive 1 g of tranexamic acid. The tourniquet was then let down for final treatment time 69 minutes. Hemostasis assured use electrocautery. Extensor [place] closed with combination 1 PDS suture #1 Vicryl suture in foetps-ex-diawd fashion. Extensor [place] checked found to be intact with subcutaneous tissue then closed with 2 Dexon suture in a buried interrupted fashion and skin was closed with skin sybil. Leg was then cleaned and dried and a sterile dressing with Xeroform, 4 fours, sterile cast padding, Cesar bandage were applied. Patient then transferred to the recovery in stable condition. Patient tolerated procedure well and there were no complications. Wang Thayer, my physician assistant director of admissions, was present for the entire procedure. His assistance was essential and required for appropriate patient positioning, prepping and draping, surgical exposure, performing the technical details of the operation, placement the implants, closure of the wound, and placement of the sterile bandage. I attest to the content of the Intraoperative Record and any orders documented therein. Any exceptions are noted below.
--- NOTE | 2024-12-18 11:33 | Anesthesiology Progress Note ---
Date of Service December 18, 2024 Anesthesia Post Procedure Vital Signs Vital Signs: Temp Pulse Resp BP Pulse Ox O2 Del Method O2 Flow Rate 12/18/24 11:30 36.7 C 78 15 112/76 94 Room Air 12/18/24 11:20 36.4 C L 86 18 146/74 H 95 Oxymask 3 12/18/24 11:10 85 14 122/75 96 Oxymask 6 12/18/24 10:59 36 C L 74 18 117/73 94 Oxymask 6 12/18/24 06:54 36.6 C 81 20 152/88 H 93 Room Air Pain Intensity Left Knee: Pain Intensity: 3 Transfer of Care Handoff Completed per policy Notes Mental Status: alert / awake / arousable and participated in evaluation Patient Amnestic to Procedure: Yes Nausea / Vomiting: adequately controlled Pain: adequately controlled Airway Patency, RR, SpO2: stable & adequate BP & HR: stable & adequate Hydration State: stable & adequate Anesthetic Complications: no major complications apparent and Pt Satisfied with anesthetic care
--- NOTE | 2024-12-18 11:45 | XRay Report ---
XR knee LT 1 or 2V routine CLINICAL HISTORY: Surgical Post Op COMPARISON: None FINDINGS: 2 portable views of the left knee demonstrate total knee replacement with satisfactory pos itioning and alignment of the prosthetic components. Postsurgical changes are noted. IMPRESSION: As above ACT 112: Negative or not required by law. Electronically signed by: Rosa Hall M.D. 12/18/2024 11:43 AM
[2024-12-18] MEDS ORDERED: ONDANSETRON INJ 2 MG/ML 2 ML VIAL IV PRN (12:12)
[2024-12-18] MEDS ORDERED: ALUMINUM/MAGNESIUM SUSP 30 ML UDC PO PRN (12:12)
[2024-12-18] MEDS ORDERED: NALOXONE HCL 0.4 MG/1 ML VIAL/CARP IV PRN (12:12)
[2024-12-18] MEDS ORDERED: TAMSULOSIN HCL 0.4 MG CAP PO PRN (12:12)
[2024-12-18] MEDS ORDERED: METOCLOPRAMIDE HCL INJ 5 MG/ML 2 ML VIAL IV PRN (12:12)
[2024-12-18] MEDS ORDERED: MAGNESIUM HYDROXIDE SUSP 30 ML UDC PO PRN (12:12)
[2024-12-18] MEDS ORDERED: bisacodyL 10 MG SUPP PR PRN (12:12)
[2024-12-18] MEDS: KETOROLAC 30 MG/ML VIAL ONE (12:15)
[2024-12-18] MEDS: KETOROLAC TROMETHAMINE 15 MG/ML VIAL IV SCH (12:29)
[2024-12-18] MEDS: HYDROmorphone INJ 0.5 MG/0.5 ML SYR IV PRN (13:20)
[2024-12-18 14:21] VITALS: RESP 18
[2024-12-18] MEDS: ceFAZolin 2000MG 2,000 MG/15 ML SYR IV SCH (17:52)
[2024-12-18] MEDS: ASCORBIC ACID 500 MG TAB PO SCH (18:18)
[2024-12-18] MEDS: TRANEXAMIC ACID / 0.7% NACL 1,000 MG/100 ML BAG IV SCH (18:23)
[2024-12-18] MEDS: SENNA 8.6 MG TAB PO SCH (20:38)
[2024-12-18] MEDS: DOCUSATE SODIUM 100 MG CAP PO SCH (20:38)
[2024-12-18] MEDS: ASPIRIN 81 MG ECTAB PO SCH (20:39)
[2024-12-18] MEDS ORDERED: SENNA 8.6 MG TAB PO SCH (21:00)
[2024-12-19 08:05] VITALS: BP 164/93; PULSE 67; TEMP 97.7; O2SAT 95
[2024-12-19] MEDS: dexAMETHasone 10 MG in SYRINGE 0 ML IV SCH (08:21)
[2024-12-19] MEDS: MULTIVITAMIN TAB PO SCH (08:30)
[2024-12-19] MEDS: CYANOCOBALAMIN (B-12) 100 MCG TABLET PO SCH (08:30)
[2024-12-19] MEDS: LOSARTAN POTASSIUM 50 MG TAB PO SCH (08:31)
[2024-12-19] MEDS: CHOLECALCIFEROL 25 MCG (1000 UNITS) TAB PO SCH (08:31)
[2024-12-19 08:45] LABS: Hematocrit (blood only) 39.3 % (42.0-52.0); Hemoglobin 13.2 g/dl (14.0-18.0); Mean Corpuscular Hemoglobin 30.6 pg (25.0-34.0); Mean Corpuscular Hgb Conc 33.6 g/dL (32.0-36.0); Mean Corpuscular Volume 91.2 fL (80.0-100.0); Mean Platelet Volume 9.8 fL (9.4-12.4); Platelet Count 283 K/uL (130-400); RDW Coefficient of Variation 12.9 % (11.5-14.5); RDW Standard Deviation 43.2 fL (36.4-46.3); Red Blood Count 4.31 M/uL (4.70-6.10); White Blood Count 16.42 K/ul (4.8-10.8)
[2024-12-19] MEDS ORDERED: NON-FORMULARY MEDICATION (Turmeric Root Extract 500 mg Capsule) PO SCH (09:00)
[2024-12-19] MEDS ORDERED: NON-FORMULARY MEDICATION (Ascorbic Acid (Vitamin C) [Vitamin C] 100 mg Tablet) PO SCH (09:00)
[2024-12-19] MEDS ORDERED: [UNRECOGNIZED DRUG - OTHER] PO SCH (09:00)
[2024-12-19] MEDS ORDERED: CHERRY FRUIT EXTRACT PO SCH (09:00)
[2024-12-19 09:09] LABS: BUN Creatinine Ratio 25.6 (10-20); Calcium 8.8 mg/dl (8.6-10.3); Creatinine Clr Calc Pharmacy 131.6 ml/min; Potassium 4.4 mmol/L (3.5-5.1)
[2024-12-19] MEDS: oxyCODONE HCL IR 5 MG TAB (IMMEDIATE RELEASE) PO PRN (09:56)
--- NOTE | 2024-12-19 12:56 | Orthopedic Progress Note ---
Date of Service December 19, 2024 Assessment & Plan (1) Status post total left knee replacement: (2) Aftercare following knee joint replacement surgery: Plan 69-year-old gentleman POD# 1 s/p left total knee replacement, doing well overall. Pain is well-controlled. Medically stable. Postop x-rays well- appearing. He is neurologically intact. Plan: 1. DVT prophylaxis w/ TEDs, SCDs, ASA 81 mg BID. 2. PT/OT as tolerated. WBAT on the L LE. Encourage heel slides, SLR, full knee extension w/ quad sets. 3. Pain control doing well with current pain regimen. 4. Dressing change POD#2 per discharge instructions. 5. Disposition - plan to D/C home w/ home health later today once cleared by PT/OT. 6. F/u 2 weeks post-op w/ orthopedics (Dr. Miller's team), or as previously scheduled, for first post-op visit. Subjective Patient is POD# 1 s/p [right/left] total knee arthroplasty by Dr. Miller on 12/18/2024. Patient says his pain is well-controlled this morning. Denies CP, SOB, N/V, L LE paresthesia. [facility] is going [facility] have [facility] to come to the house for therapy. Patient says that he will be ready to go home today. Review of Systems All systems reviewed & are unremarkable except as noted in HPI & below. Physical Exam GENERAL: AA&Ox3, NAD. Pleasant, affect is calm. Sitting in bed and appears comfortable. RESPIRATORY: Normal respiratory effort with no signs of distress. CHEST/AXILLA: Chest movement symmetrical. No deformities noted. CARDIOVASCULAR: No edema noted. SKIN: [place], warm and dry. MS/EXTREMITY: Knee dressing & ARON wrap c/d/i; thigh-high SCD overlying dressing. ARIANA hose donned to contralateral LE. + ankle dorsi/plantarflexion. NVI distally. Calf soft/NT. PT/DP pulses intact, 2+. Results & Data Results & Data Laboratory Results . Laboratory Results - last 24 hr 12/19/24 08:10 WBC 16.42 H RBC 4.31 L Hgb 13.2 L Hct 39.3 L MCV 91.2 MCH 30.6 MCHC 33.6 RDW Std Deviation 43.2 RDW Coeff of Yeni 12.9 Plt Count 283 MPV 9.8 Sodium 139 Potassium 4.4 Chloride 105 Carbon Dioxide 29 Anion Gap 5 BUN 21 Creatinine 0.82 Est Cr Clr Drug Dosing 131.6 eGFR 94.50 BUN/Creatinine Ratio 25.6 H Glucose 113 H Calcium 8.8 Diagnostic Findings . Knee X-Ray 12/18/24 10:56 XR knee LT 1 or 2V routine CLINICAL HISTORY: Surgical Post Op COMPARISON: None FINDINGS: 2 portable views of the left knee demonstrate total knee replacement with satisfactory positioning and alignment of the prosthetic components. Postsurgical changes are noted. IMPRESSION: As above ACT 112: Negative or not required by law. Electronically signed by: Rosa Hall M.D. 12/18/2024 11:43 AM PG Care Time/CCT Total # of Minutes Spent Total Time Spent with Patient: Total time spent is greater than 50% in coordination of care (as documented) at patient's floor/unit and/or counseling patient: [place]oding [place] [address] SUB INP/OBS CARE 11/24MIN Patient Type Established History Problem Focused Exam Problem Focused Medical Decision Making Straight Forward Diagnoses Status post total left knee replacement Z96.652 Aftercare following knee joint replacement surgery Z47.1; Z96.659
--- NOTE | 2024-12-19 15:15 | Discharge Summary ---
Date of Service December 19, 2024 Admission HPI (Per Admitting) 11/19/24 OV: The patient is a 69-year-old fairly large gentleman who presents for followup of his knees. He is 2 years out from right knee replacement and doing pretty well. A little bit of ache and pain, but in general pretty happy. The left kne e continues to bother him. It is mostly all medial pain. The shots helped him temporarily. He is looking to have this knee fixed. No groin pain. There have been no real changes in his medical situation. They have increased his blood pressure medicine dose just a little bit. Admission Exam (Per Admitting) Gen: Physical examination shows a large, middle-aged male. He looks to be in reasonably good health. HEENT: Benign. Neck: Supple. No lymphadenopathy. Lungs: Clear to auscultation. Heart: Regular rate and rhythm. Abdomen: Soft , nontender, and nondistended. Extremities: Grossly neurovascularly intact except as follows: Examination of both knee reveals the patient ambulates independently. Examination of the right knee reveals a well-healed incision. Large soft tissue envelope. Range of motion is 0 to 120. Good straight leg raise. Examination of the left knee reveals slight varus alignment to his knee. He is tender over the medial joint line. Range of motion is 5 to 120. No instability. No particular pain with hip motion. XR Exam:Four-view left knee DJD series from today was reviewed. It shows advanced left knee medial compartmental arthritis. He has got complete loss of his medial joint space. He has got some subchondral sclerosis. The right knee replacement looks to be in a good position without problems. He has got a tibial stem in place. Principal Diagnosis Same as "Discharge Diagnosis" noted below under Discharge Instructions. Discharge Exam GENERAL: AA&Ox3, NAD. Pleasant, affect is calm. Sitting in bed and appears comfortable. RESPIRATORY: Normal respiratory effort with no signs of distress. CHEST/AXILLA: Chest movement symmetrical. No deformities noted. CARDIOVASCULAR: No edema noted. SKIN: Accident, warm and dry. MS/EXTREMITY: Knee dressing & ARON wrap c/d/i; thigh-high SCD overlying dressing. ARIANA hose donned to contralateral LE. + ankle dorsi/plantarflexion. NVI distally. Calf soft/NT. PT/DP pulses intact, 2+. Discharge Data Procedures Performed Operation Date: 12/18/24 08:50 Actual Procedures p Left Total Knee Arthroplasty(Left) - Kenny Miller MD Ordered Studies 12/18/24 05:00 US - OR guided needle placemen Routine Hospital Course (1) Aftercare following knee joint replacement surgery: (2) Status post total left knee replacement: Plan On December 18, 2024 Kamar arrived at [facility] operating room and underwent a left total knee replacement without complications. Patient had a an adductor canal block and spinal anesthetic for the procedure. Pos toperatively, patient was transferred to the general orthopedic floor in stable condition and eventually started onto aspirin 81 mg twice daily for DVT prophylaxis as appropriate. Patient's hospital course was uneventful. On postoperative day #1, patient's vital signs were stable and pain was well- controlled. Patient was able to participate well with physical therapy, safely performing the necessary ambulation and range of motion exercises and properly demonstrating ADL tasks. Patient was then discharged home in stable condition, with [facility] to begin. Patient will follow-up with orthopedics in 2 to 3 weeks for postoperative care. PG Care Time/CCT Total # of Minutes Spent Total Time Spent with Patient: Total time spent is greater than 50% in coordination of care (as documented) at patient's floor/unit and/or counseling patient: Discharge Plan Discharge Items Patient Disposition: Home - Home Health Services Reason For Visit: Left Knee Osteoarthritis Discharge Diagnosis: Left Knee Replacement Activity: Per Instructions section Weightbearing: Full weightbearing Non-emergency contact: Surgeon Call non-emergency contact if: you have any medication questions Follow-up/Referrals: Tree Bee D.O. [Primary Care Provider] - Diet: Regular Addtl Attending Provider Instructions: ACTIVITY RECOMMENDATIONS: Diet: * You may resume previous diet. Physical Therapy: * You will go to physical therapy three times each week for four to six weeks after your surgery in order to regain your knee range of motion and to retrain your knee to work properly. * It is just as important to make sure you are getting your knee perfectly straight as it is to regain your knee bend. * Taking a pain pill an hour before therapy can help you have a more productive and comfortable therapy session. Home Exercise: * You were shown a series of exercises (heel props, heel slides, etc.) in the hospital. Do these exercises three to four times each day including the exercises you were shown in physical therapy. Walking: * Get up and walk several times each day. For the first four weeks, try not to stand or walk for more than one hour at a time. If you do stand or walk for more than one hour, you will not hurt anything, but your knee and leg will likely swell. * As you feel comfortable, you may change from the walker or crutches to a cane and then to independent walking. MEDICATIONS: New Medicine: * You will likely be taking one or more of these medications: 1. Oxycodone - A quick and shorter-acting pain medication. Take one to two tablets every six hours to lessen your pain. 2. Aspirin - Thins your blood to lessen the chance of forming a blood clot. * The most common side effects of pain medicine and iron are nausea and constipation. If nausea or constipation is too much of a problem or if you have any questions about your new medicines or doses, call [facility] at . We will try to help you manage these issues. "VERY IMPORTANT TO READ AND REVIEW" Pain: * The immediate post-operative period after knee replacement surgery is often quite painful. * You are given a prescription for pain medicine. You should take it, as directed, when you need it, especially before physical therapy and before going to bed. Pain that interferes with sleep is very common and can last several months. * You will likely need pain medicine for the first four to six weeks. It will not stop all of the pain. The pain will lessen and as you feel better, you may change to milder pain medicine such as Tylenol. * The most common side effects of pain medicine are nausea and constipation, so don't take more than you need. SPECIAL CARE INSTRUCTIONS: TEDs/Elastic Stockings: * The white elastic stockings help limit swelling and prevent blood clots from forming in your legs. The more you wear them, the more they work. * Wear them for six weeks after knee replacement surgery and four weeks after partial knee replacement. Incision Site Care: * Remove dressing postoperative day 2 and then shower. Keep direct shower pressure off the incision site. * After showering, cover sybil with dry gauze and change daily or more frequently if the dressing is getting saturated with drainage. * Use the ARIANA stockings to hold dressing in place. DO NOT apply tape on the skin. * May completely stop using bandage if wound is dry and no drainage * [place] are removed between 2 and 3 weeks post-op. If your follow-up appointment is made before 2 weeks, please have your appointment re- scheduled. It is too early to remove the sybil. Prevention of Infection: * Take antibiotics one hour before any dental cleaning, dental work, urological procedure, gastrointestinal procedure or any invasive surgery in order to prevent your new joint from getting infected. * You may get the antibiotics from the doctor performing the procedure or you may call our office at [phone] before and we will call in a prescription to the pharmacy of your choice. Things to Watch For: * Drainage from the incision site that occurs more than one week after your surgery. * Severely increased knee/leg pain or swelling. * Increased redness at the incision site. * Fever above 102 degrees Fahrenheit. * Unusual chest pain or shortness of breath. * Unusual pain or burning with urination. Call [facility] at [phone] with any of the above problems or if you have any questions about your medicines or recovery. FOLLOW UP VISIT: Make an appointment to see your doctor for approximately two weeks after surgery for a progress check and staple removal by calling the office at [phone]. Pending Studies at Discharge: No Stand-Alone Forms: My [facility], Smoking Cessation Medications and DC Order Prescriptions: Continued oxycodone 5 mg tablet 5 - 10 mg PO Q6 PRN (Reason: pain) Qty: 40 0RF Rx Instructions: Take as needed for pain ondansetron 4 mg tablet,disintegrating 4 mg PO Q8 PRN (Reason: nausea) Qty: 20 1RF Rx Instructions: Take as needed for nausea ketorolac 10 mg tablet 10 mg PO Q6 5 Days Qty: 20 0RF Rx Instructions: Take 4 times per day with food for 5 days to lessen pain and swelling. sennosides [Senokot] 8.6 mg tablet 8.6 mg PO BID 14 Days Qty: 28 0RF Rx Instructions: Take two times a day to prevent/treat constipation acetaminophen [Tylenol Extra Strength] 500 mg tablet 1,000 mg PO TID 30 Days Qty: 180 0RF Rx Instructions: Take 3 times per day to lessen pain. aspirin [Clara Low Dose Aspirin] 81 mg tablet,delayed release (DR/EC) 81 mg PO BID 45 Days Qty: 90 0RF Rx Instructions: Take to prevent blood clots. cefadroxil 500 mg capsule 500 mg PO BID 7 Days Qty: 14 0RF Rx Instructions: Take 1 cap twice a day to prevent infection 5-Loxin 1 tab PO QAM Vitamin C 100 mg Tablet 100 mg PO QAM cholecalciferol (vitamin D3) [Vitamin D3] 25 mcg (1,000 unit) Tablet 25 mcg PO QAM Ca-D3-mag [id number] [Calcium 600-D3 Plus (mag-zinc)] 600 mg calcium- 20 mcg-50 mg Tablet 1 tab PO QAM Reyez Fruit Extract 1 tab PO QAM colchicine tablet See Rx Instructions .ROUTE .COMPLEX Rx Instructions: As directed PRN for gout flares losartan 50 mg Tablet 50 mg PO QAM turmeric root extract 500 mg Capsule 500 mg PO QAM amoxicillin 500 mg tablet 2,000 mg PO ONCE PRN (Reason: dental procedure) Rx Instructions: 4 tabs 1 hour prior to procedure cyanocobalamin (vitamin B-12) [Vitamin B-12] 100 mcg Tablet 100 mcg PO QAM Krames/Other Patient Handouts: Knee Replace Home Recovery Admission Data Admit Date/Time: 12/18/24 10:56 Attending Provider: Kenny Miller Admit Provider: Kenny Miller Primary Care Provider: Tree Bee Other Providers: [facility],Home Health Other Interventions: Discharge Summary Assessment (RN) Last Done: 12/19/24 09:50
== END 2024-12-19 10:48 | disposition home health service (06) ==
LOC: PACUINP 06:20 → ASU 06:20 → 3N 14:09
DX: Z68.43 Body mass index [BMI] 50.0-59.9, adult; E66.01 Morbid (severe) obesity due to excess calories; I10 Essential (primary) hypertension; M17.12 Unilateral primary osteoarthritis, left knee; M25.462 Effusion, left knee; M25.762 Osteophyte, left knee; Z96.651 Presence of right artificial knee joint; Z79.899 Other long term (current) drug therapy; Z79.82 Long term (current) use of aspirin; M65.98 Unspecified synovitis and tenosynovitis, other site